=== PATIENT | female | born 1970 | race Two or more races ===

== ENCOUNTER 2020-08-02 05:31 | Inpatient (IN) | payer BC, OTHER ==
[~2020-08-02] VITALS: Ht 147.3 cm; Wt 55.8 kg
--- NOTE | 2020-08-02 06:18 | NUR ---
RAC 20G PIV STARTED, BLOOD DRAWN AND SENT TO LAB
--- NOTE | 2020-08-02 06:20 | NUR ---
BIBS FOR C/O GENRALIZED ABD PAIN, N/V SINCE LAST NIGHT TO ER BED 9
[2020-08-02 06:26] LABS: BASOPHILS % (AUTO) 0.2 % (0.0-2.0); EOSINOPHILS % (AUTO) 0.1 % (0.0-6.0); HEMATOCRIT 38 % (33-45); HEMOGLOBIN 12.5 g/dL (11.5-14.8); LYMPHOCYTES # (AUTO) 0.9 /CMM (0.8-4.8); LYMPHOCYTES % (AUTO) 12.3 % (20.0-44.0); MEAN CORPUSCULAR HGB CONC 33 g/dl (31.0-36.0); MEAN CORPUSCULAR VOLUME 87 fL (82-100); MONOCYTES # (AUTO) 0.2 /CMM (0.1-1.30); MONOCYTES % (AUTO) 2.6 % (2.0-12.0); NEUTROPHILS # (AUTO) 6.1 /CMM (1.8-8.9); NEUTROPHILS % (AUTO) 84.8 % (43.0-81.0); PLATELET COUNT (AUTO) 215 /CMM (150-450); RED BLOOD CELL COUNT(AUTO) 4.36 MIL/uL (4.0-5.2); WHITE BLOOD COUNT (AUTO) 7.2 K/uL (4.3-11.0)
[2020-08-02] MEDS ORDERED: IV NS 0.9% 1,000 ML BAG IV ONE ×2 (06:30)
[2020-08-02] MEDS ORDERED: MORPHINE SULFATE INJ 2 MG/ML DISP.SYRIN IV ONE ×2 (06:30→07:00)
[2020-08-02] MEDS ORDERED: ONDANSETRON HCL/PF 4 MG/2 ML VIAL IVP ONE (06:30)
[2020-08-02] MEDS ORDERED: ONDANSETRON HCL/PF 4 MG/2 ML VIAL ONE ×2 (06:32→07:06)
[2020-08-02] MEDS ORDERED: MORPHINE SULFATE INJ 4 MG/ML DISP.SYRIN ONE (06:32)
[2020-08-02 06:53] LABS: ALBUMIN 4.1 g/dL (3.4-5.0); BILIRUBIN,DIRECT 0.1 mg/dL (0.0-0.2); BILIRUBIN,TOTAL 0.4 mg/dL (0.2-1.0); CREATININE 0.7 mg/dL (0.6-1.3); POTASSIUM 3.5 mmol/L (3.5-5.1); TOTAL PROTEIN, SERUM 7.8 g/dL (6.4-8.2)
[2020-08-02] MEDS ORDERED: MORPHINE SULFATE INJ 2 MG/ML DISP.SYRIN ONE (06:56)
[2020-08-02] MEDS ORDERED: CEFTRIAXONE 1GM BAG (ER ONLY) 50 ML IV ONE (06:56)
--- NOTE | 2020-08-02 06:56 | NUR ---
DR Robbie WRAY PAGED PER DR ABRAMS.
[2020-08-02] MEDS ORDERED: CEFTRIAXONE 1GM BAG (ER ONLY) 1 GM/50 ML PIGGYBACK IV ONE (07:00)
--- NOTE | 2020-08-02 07:05 | NUR ---
COVID SWAB COLLECTED AND SENT TO LAB
[2020-08-02 07:15] LABS: BILIRUBIN,URINE NEGATIVE (NEGATIVE); LEUKOCYTE ESTERASE ,URINE NEGATIVE (NEGATIVE); NITRITE, URINE NEGATIVE (NEGATIVE); PROTEIN,URINE NEGATIVE (NEGATIVE); UGLUCOSE NEGATIVE (NEGATIVE); UROBILINOGEN,URINE 0.2 EU/dL (0.2)
[2020-08-02 07:23] LABS: COLOR,URINE STRAW (YELLOW)
[2020-08-02] MEDS ORDERED: ONDANSETRON HCL/PF - ER 4 MG/2 ML VIAL IV ONE (07:30)
[2020-08-02 07:50] LABS: BACTERIA,URINE Few /HPF (None Seen); RBC,URINE NONE SEEN /HPF (0-2); SQUAMOUS EPITHELIAL CELL,UR Rare /HPF (None Seen); WBC,URINE NONE SEEN /HPF (0-3)
[2020-08-02 07:51] LABS: URINE AMORPHOUS URATE Many /HPF (None Seen)
--- NOTE | 2020-08-02 08:42 | NUR ---
PT AAOX4, VSS. RR EVEN & UNLABORED. ABD PAIN 03/22 & HOLDEN WELL. DENIES CP, SOB, DIZZINESS, N/V AT THIS TIME. WILL CONT TO MONITOR.
--- NOTE | 2020-08-02 08:55 | NUR ---
call back from dr luciana willard
--- NOTE | 2020-08-02 09:43 | NUR ---
NURSING SUP GAVE [phone].
--- NOTE | 2020-08-02 09:51 | NUR ---
REPORT GIVEN TO LIDYA GÓMEZ FOR LUCILA.
--- NOTE | 2020-08-02 10:32 | NUR ---
MS RN NOTE PATIENT IS ADMITTED FROM ER. PATIENT IS IN NO ACUTE DISTRESS. PATIENT IS IN BED RESTING, VITAL SIGNS ARE NORMAL. IV ACCESS ON THE RIGHT AC JACEK 20. PATIENT IS NPO FOR NOW. SAFETY PRECAUTIONS ARE ON, BED IS LOCKED IN THE LOWEST POSITION, WITH SIDE RAILS UP, CALL LIGHT WITHIN REACH, WILL CONTINUE TO MONITOR CLOSELY THROUGHOUT THE SHIFT.
[2020-08-02] MEDS ORDERED: ONDANSETRON HCL/PF 4 MG/2 ML VIAL IVP PRN (14:30)
[2020-08-02] MEDS ORDERED: ACETAMINOPHEN 325 MG TABLET PO PRN (14:30)
[2020-08-02] MEDS ORDERED: ZOLPIDEM TARTRATE 5 MG TABLET PO PRN (14:30)
[2020-08-02] MEDS ORDERED: MORPHINE SULFATE INJ 2 MG/ML DISP.SYRIN IV PRN (14:30)
[2020-08-02] MEDS ORDERED: Z GUARD REMEDY 2 OZ OINT TP PRN (14:30)
[2020-08-02 16:00] VITALS: BP 104/62
--- NOTE | 2020-08-02 18:35 | NUR ---
MS RN CLOSING NOTE PATIENT IS IN BED RESTING, PATIENT IS IN NO ACUTE DISTRESS. SAFETY PRECAUTIONS ARE ON, BED IS LOCKED IN THE LOWEST POSITION, WITH SIDE RAILS UP, CALL LIGHT WITHIN REACH, ENDORSE PATIENT TO ESCORT VEHICLE DRIVER NURSE FOR LUCILA. .
--- NOTE | 2020-08-02 19:00 | NUR ---
received in bed alert and orienated smiling and visiting with her at the bedside noted clear liquid dinner tray on the table 100% consumed denies Nausea or or Pain Stated last BM 08/02 in the AM tiana and mirtha call light reviewed with her
[2020-08-02 20:00] VITALS: BP 112/62
[2020-08-03] VITALS (7 sets, daily range): BP systolic 91–137; BP diastolic 58–91
--- NOTE | 2020-08-03 04:32 | NUR ---
Closing notes: remains alert and orientated. clear liquid diet for dinner consumed 100% no n/v or pain followed. visited by her . continent ambulates to the bathroom steady on her legs. slept soundly
[2020-08-03 05:58] LABS: BASOPHILS % (AUTO) 0.4 % (0.0-2.0); EOSINOPHILS % (AUTO) 2.1 % (0.0-6.0); HEMATOCRIT 33 % (33-45); HEMOGLOBIN 10.8 g/dL (11.5-14.8); LYMPHOCYTES # (AUTO) 1.6 K/uL (0.8-4.8); LYMPHOCYTES % (AUTO) 37.6 % (20.0-44.0); MEAN CORPUSCULAR HGB CONC 33 g/dl (31.0-36.0); MEAN CORPUSCULAR VOLUME 88 fL (82-100); MONOCYTES # (AUTO) 0.4 K/uL (0.1-1.30); MONOCYTES % (AUTO) 8.9 % (2.0-12.0); NEUTROPHILS # (AUTO) 2.1 K/uL (1.8-8.9); PLATELET COUNT (AUTO) 177 K/uL (150-450); RED BLOOD CELL COUNT(AUTO) 3.73 MIL/uL (4.0-5.2); WHITE BLOOD COUNT (AUTO) 4.2 K/uL (4.3-11.0)
[2020-08-03 07:09] LABS: THYROID STIMULATING HORMONE 0.827 uIU/mL (0.358-3.74)
[2020-08-03 07:19] LABS: ALBUMIN 3.1 g/dL (3.4-5.0); BILIRUBIN,TOTAL 0.5 mg/dL (0.2-1.0); CALCIUM, SERUM 8.4 mg/dL (8.5-10.1); CREATININE 0.7 mg/dL (0.6-1.3); MAGNESIUM 2.2 mg/dL (1.8-2.4); POTASSIUM 3.5 mmol/L (3.5-5.1)
--- NOTE | 2020-08-03 07:43 | NUR ---
MS RN OPENING NOTES RECEIVED PATIENT IN BED ASLEEP, EASY TO AROUSE. ON ROOM AIR, ALERT AND ORIENTED X 4. NO SIGNS OR SYMPTOMS OF DISTRESS NOTED. NO COMPLAINTS OF PAIN AT THIS TIME. BREATHING IS EVEN AND UNLABORED. IV ACCESS RAC#20, PATENT AND INTACT. SAFETY MEASURES IN PLACE WITH BED LOCKED IN LOW POSITION, SIDE RAILS UP X 2. CALL LIGHT IS WITHIN REACH. WILL CONTINUE TO MONITOR THROUGHOUT SHIFT.
[2020-08-03] MEDS: PANTOPRAZOLE 40 MG VIAL IV SCH (08:40)
--- NOTE | 2020-08-03 10:50 | NUR ---
MS RN NOTES PATIENT WAS TRANSPORTED OUT OF UNIT WITH STABLE VITAL SIGNS VIA WHEELCHAIR TO RADIOLOGY FOR MRCP.
--- NOTE | 2020-08-03 11:16 | NUR ---
MS RN NOTES PATIENT RETURNED FROM RADIOLOGY AT THIS TIME. PATIENT VITAL SIGNS ARE STABLE.
[2020-08-03] MEDS ORDERED: ANESTHESIA TRAY IN PYXIS 1 EA TRAY MC ONE (16:17)
[2020-08-03] MEDS ORDERED: LIDOCAINE 1% INJ 50 ML MDV IJ ONE (16:18)
[2020-08-03] MEDS ORDERED: BUPIVACAINE MPF W/EPI 0.25% 30 ML VIAL ONE (16:18)
[2020-08-03] MEDS ORDERED: BUPIVACAINE MPF 0.5% W/EPI INJ 30 ML VIAL ONE (16:18)
[2020-08-03] MEDS ORDERED: MIDAZOLAM HCL 2 MG/2ML VIAL ONE (16:20)
[2020-08-03] MEDS ORDERED: FENTANYL PF 250MCG/5ML AMPUL ONE (16:20)
[2020-08-03] MEDS ORDERED: HYDROMORPHONE INJ 2 MG/ML DISP.SYRIN ONE (16:21)
--- NOTE | 2020-08-03 16:30 | NUR ---
MS RN NOTES PATIENT WAS TRANSPORTED TO OPERATING ROOM BY JONATHAN OR NURSE AND ONE OTHER STAFF. PATIENT VITAL SIGNS WERE STABLE AT TIME OF DEPARTURE.
[2020-08-03] MEDS ORDERED: IOHEXOL 0 ML IV ONE (16:42)
--- NOTE | 2020-08-03 19:08 | NUR ---
MS RN CLOSING NOTES RECEIVED PATIENT IN BED ASLEEP, EASY TO AROUSE. ON ROOM AIR, ALERT AND ORIENTED X 4. NO SIGNS OR SYMPTOMS OF DISTRESS NOTED. NO COMPLAINTS OF PAIN AT THIS TIME. BREATHING IS EVEN AND UNLABORED. IV ACCESS RAC#20, PATENT AND INTACT. SAFETY MEASURES IN PLACE WITH BED LOCKED IN LOW POSITION, SIDE RAILS UP X 2. CALL LIGHT IS WITHIN REACH. WILL ENDORSE TO ONCOMING NURSE PLAN OF CARE. Addendum: 08/03/20 at 1909 by CASE MCELROY RN ERROR
--- NOTE | 2020-08-03 19:09 | NUR ---
MS RN CLOSING NOTES PATIENT IS STILL OUT FOR SURGERY. WILL ENDORSE CONTINUITY OF CARE TO NEXT NURSE.
--- NOTE | 2020-08-03 19:42 | NUR ---
MS RN NOTES RECEIVED PATIENT IN BED ON ROOM AIR, ALERT AND ORIENTED X 4. NO SIGNS OR SYMPTOMS OF DISTRESS NOTED. NO COMPLAINTS OF PAIN AT THIS TIME. BREATHING IS EVEN AND UNLABORED. IV ACCESS RAC#20, PATENT AND INTACT. ELIZABETH SIGNS ARE STABLE. CHECKED SURGICAL SITE WITH FIREBOAT OPERATOR 3 LAPAROSCOPIC SITES. SAFETY MEASURES IN PLACE WITH BED LOCKED IN LOW POSITION, SIDE RAILS UP X 2. CALL LIGHT IS WITHIN REACH. WILL CONTINUE TO MONITOR.
--- NOTE | 2020-08-03 20:29 | NUR ---
MS RN NOTES CALLED OR FOR POST OP ORDERS PER MD WRAY HE ALREADY PUT IN THE ORDERS. WILL CONTINUE TO MONITOR.
[2020-08-04 05:59] LABS: BASOPHILS % (AUTO) 0.1 % (0.0-2.0); EOSINOPHILS % (AUTO) 0.5 % (0.0-6.0); HEMATOCRIT 31 % (33-45); HEMOGLOBIN 10.4 g/dL (11.5-14.8); LYMPHOCYTES # (AUTO) 0.9 K/uL (0.8-4.8); LYMPHOCYTES % (AUTO) 12.8 % (20.0-44.0); MEAN CORPUSCULAR HGB CONC 34 g/dl (31.0-36.0); MEAN CORPUSCULAR VOLUME 87 fL (82-100); MONOCYTES # (AUTO) 0.5 K/uL (0.1-1.30); MONOCYTES % (AUTO) 6.9 % (2.0-12.0); NEUTROPHILS # (AUTO) 5.3 K/uL (1.8-8.9); NEUTROPHILS % (AUTO) 79.7 % (43.0-81.0); PLATELET COUNT (AUTO) 177 K/uL (150-450); RED BLOOD CELL COUNT(AUTO) 3.55 MIL/uL (4.0-5.2); WHITE BLOOD COUNT (AUTO) 6.7 K/uL (4.3-11.0)
--- NOTE | 2020-08-04 06:40 | NUR ---
MS RN NOTES PATIENT IN BED ON ROOM AIR, ALERT AND ORIENTED X 4. NO SIGNS OR SYMPTOMS OF DISTRESS NOTED. NO COMPLAINTS OF PAIN AT THIS TIME. BREATHING IS EVEN AND UNLABORED. IV ACCESS RAC#20, PATENT AND INTACT. ELIZABETH SIGNS ARE STABLE. ALL NURSING NEEDS MET.SAFETY MEASURES IN PLACE WITH BED LOCKED IN LOW POSITION, SIDE RAILS UP X 2. CALL LIGHT IS WITHIN REACH. WILL ENDORSE CARE TO DAY SHIFT NURSE.
[2020-08-04 07:28] LABS: ALBUMIN 2.9 g/dL (3.4-5.0); BILIRUBIN,TOTAL 0.5 mg/dL (0.2-1.0); CALCIUM, SERUM 8.1 mg/dL (8.5-10.1); CREATININE 0.8 mg/dL (0.6-1.3); PHOSPHORUS 4.5 mg/dL (2.5-4.9); POTASSIUM 3.6 mmol/L (3.5-5.1); TOTAL PROTEIN, SERUM 5.9 g/dL (6.4-8.2)
--- NOTE | 2020-08-04 08:00 | NUR ---
m/s management services technician: notes received pt in bed awake, a/ox4; ambulatory. s/p lap rosa. has 3 surgical incision to abdomen with steri strip in place. no discharge/drainage noted. instructed to call for assistance. will continue to monitor.
[2020-08-04] MEDS: PANTOPRAZOLE 40 MG VIAL IV SCH (09:07)
--- NOTE | 2020-08-04 09:19 | NUR ---
m/s feed adviser: notes noted discharge home order from dr. wharton. dr. wharton notified and ask if pt needs surgical clearance, stated, "no need for surgical clearance." ivette (inpatient care manager rn, surgeon) notified and made aware with order to advance diet to regular, pt can go home and follow up in 2 weeks or as needed if feels well. order read back and carried out. pt made aware. diet ordered. will continue to monitor.
--- NOTE | 2020-08-04 11:00 | NUR ---
m/s postdoctoral scientist: notes discharge instructions given to pt and verbalized understanding. friend to pick her up.
--- NOTE | 2020-08-04 11:58 | NUR ---
m/s outdoor adventure leader: discharged discharged home in stable condition accompanied by friend via private car.
[2020-08-05] MEDS ORDERED: PANTOPRAZOLE 40 MG TABLET.DR PO SCH (07:30)
== END 2020-08-04 11:56 | disposition home or self-care (01) | DRG 419 ==
LOC: ER 05:33 → MED 09:59
PROVIDERS: ADMIT Nurse Practitioner Acute Care; ATTEND Nurse Practitioner Acute Care
PROC: 0FT44ZZ Resection of Gallbladder, Percutaneous Endoscopic Approach (ICD-10-PCS; principal; 2020-08-03)
PROC: 0FB04ZX Excision of Liver, Percutaneous Endoscopic Approach, Diagnostic (ICD-10-PCS; 2020-08-03)
DX: K80.00 Calculus of gallbladder with acute cholecystitis without obstruction (principal); F43.9 Reaction to severe stress, unspecified; Z90.711 Acquired absence of uterus with remaining cervical stump; K82.8 Other specified diseases of gallbladder; Z20.822 Contact with and (suspected) exposure to COVID-19; R73.9 Hyperglycemia, unspecified; R94.5 Abnormal results of liver function studies
CPT/HCPCS: 36415; 74181-TC; 76705-TC; 80048-TC; 80053-TC; 80061-TC; 80076-TC; 81001; 83690-TC; 83735-TC; 84100-TC; 84443-TC; 84703-TC; 85025-TC; 87081-TC; 88304-TC; 88307-TC; 88313-TC; C9113; C9803; G0378; J0690; J0696; J1170; J1885; J2250; J2270; J2405; J2704; J2765; J3010; J3490; J7030; Q9967